=== PATIENT | male | born 1960 | race Caucasian/White ===

== ENCOUNTER 2021-01-18 23:58 | Inpatient (IN) | payer BC ==
[~2021-01-18] VITALS: Ht 182.9 cm; Wt 80.7 kg
[2021-01-19] VITALS (10 sets, daily range): BP systolic 106–155; BP diastolic 67–103
--- NOTE | 2021-01-19 00:19 | EKG ---
[address] [address] Test Date: 2021-01-19 Test Time: 00:06:04 Pat Name: ELMO TODD Department: Room: Gender: M Floor Layer Helper: : 1960 Requested By: JOSE ALEJANDRO FRANKLIN Order Number: [id number] Reading MD: Measurements Intervals Isabel Rate: 116 P: TX: QRS: 31 QRSD: 82 T: 51 QT: 326 QTc: 459 Interpretive Statements IRREGULAR RHYTHM, NO P-WAVE FOUND OTHERWISE NORMAL ECG RI6.02 No previous ECG available for comparison
[2021-01-19] MEDS ORDERED: IV NORMAL SALINE 100ML 100 ML ONE (00:26)
[2021-01-19] MEDS ORDERED: dilTIAZem 25 MG/5 ML VIAL IVP ONE (00:30)
[2021-01-19] MEDS ORDERED: IV RINGERS SOLUTION,LACTATED 1,000 ML IV ONE (00:30)
[2021-01-19] MEDS ORDERED: dilTIAZem VIAL 125 MG in IV NORMAL SALINE 100ML 100 ML IV ONE (00:30)
[2021-01-19 00:49] LABS: HEMATOCRIT 40.4 % (39.0-53.0); RED BLOOD COUNT 5.12 x10^6/uL (4.30-5.70); RED CELL DISTRIBUTION WIDTH 17.5 % (11.5-14.5); WHITE BLOOD COUNT 7.6 x10^3/uL (4.0-11.0)
[2021-01-19 00:51] LABS: CALCIUM 8.6 mg/dL (8.5-10.1); CREATININE 1.2 mg/dL (0.7-1.3); POTASSIUM 3.7 mmol/L (3.5-5.1)
--- NOTE | 2021-01-19 01:32 | PHYS DOC ---
Past History Past Medical History: No Pertinent History Past Surgical History: Other Additional Past Surgical Histo: EGD Alcohol Use: None Adult General Chief Complaint Chief Complaint: Palpitations HPI HPI Patient is a 60-year-old male, otherwise healthy with a past medical history of GERD who presents to the emergency department with a chief complaint of palpitations. States that over the last couple of weeks he has noticed this and noticed some exercise intolerance. States that over the last couple of days he has had episodes where he feels out of breath when walking, especially when walking upstairs which is unusual for him. States he is usually able to run and/or swim but is getting out of breath quicker than usual. States he never had anything like this happen to him before. States that yesterday he was swimming, and got out and felt lightheaded and had to hold onto the wall but did not pass out. Denies headache, changes in vision, chest pain, abdominal pain, nausea, vomiting, dysuria, hematuria, blood in the stool. Denies any alcohol, tobacco or drug use. Denies any recent travels, traumas, fevers, Covid/flu/cold symptoms. Denies any orthopnea, PND or edema. States he is making urine and stool normally for him with no blood in either. Review of Systems Review of Systems Review of systems otherwise normal except noted in HPI. Current Medications Current Medications Current Medications Medications (Trade) Dose Ordered Sig/Darrell Start Time Stop Time Status Last Admin Dose Admin Diltiazem HCl (Cardizem Iv Push) 20 mg 1X ONCE 01/19/21 00:30 01/19/21 00:31 DC 01/19/21 00:32 20 MG Diltiazem HCl (Cardizem) 125 mg STK-MED ONCE 01/19/21 00:27 01/19/21 00:27 DC Diltiazem HCl 125 mg/Sodium Chloride 125 ml @ 5 mls/hr 1X ONCE 01/19/21 00:30 01/20/21 01:29 01/19/21 00:33 5 MLS/HR Lactated Ringer's 1,000 ml @ 1,000 mls/hr 1X ONCE 01/19/21 00:30 01/19/21 01:29 01/19/21 00:32 1,000 MLS/HR Sodium Chloride 100 ml @ As Directed STK-MED ONCE 01/19/21 00:26 01/19/21 00:27 DC Allergies Allergies Allergies Coded Allergies Type Severity Reaction Last Updated Verified No Known Drug Allergies 01/19/21 No Physical Exam Physical Exam Constitutional: Well developed, well nourished, no acute distress, non-toxic appearance. [] HENT: Normocephalic, atraumatic, bilateral external ears normal, oropharynx moist, no oral exudates, nose normal. [] Eyes: PERRLA, EOMI, conjunctiva normal, no discharge. [] Neck: Normal range of motion, no tenderness, supple, no stridor. [] Cardiovascular:Heart rate regular rhythm, no murmur [] Lungs & Thorax: Bilateral breath sounds clear to auscultation [] Abdomen: Bowel sounds normal, soft, no tenderness, no masses, no pulsatile masses. [] Skin: Warm, dry, no erythema, no rash. [] Back: No tenderness, no CVA tenderness. [] Extremities: No tenderness, no cyanosis, no clubbing, ROM intact, no edema. [] Neurologic: Alert and oriented X 3, normal motor function, normal sensory function, no focal deficits noted. [] Psychologic: Affect normal, judgement normal, mood normal. [] Current Patient Data Vital Signs Vital Signs Date Time Temp Pulse Resp B/P (MAP) Pulse Ox O2 Delivery O2 Flow Rate FiO2 01/19/21 00:39 76 16 119/78 (92) 97 Room Air 01/19/21 00:14 97.6 Lab Results Laboratory Tests Test 01/19/21 00:16 White Blood Count 7.6 x10^3/uL (4.0-11.0) Red Blood Count 5.12 x10^6/uL (4.30-5.70) Hemoglobin 13.0 g/dL (13.0-17.5) Hematocrit 40.4 % (39.0-53.0) Mean Corpuscular Volume 79 fL (79-100) Mean Corpuscular Hemoglobin 25 pg (25-35) Mean Corpuscular Hemoglobin Concent 32 g/dL (31-37) Red Cell Distribution Width 17.5 % (11.5-14.5) H Platelet Count 163 x10^3/uL (140-400) D-Dimer (Kym) 0.40 mg/L (0.00-0.50) Sodium Level 146 mmol/L (136-145) H Potassium Level 3.7 mmol/L (3.5-5.1) Chloride Level 107 mmol/L (98-107) Carbon Dioxide Level 30 mmol/L (21-32) Anion Gap 9 (6-14) Blood Urea Nitrogen 19 mg/dL (8-26) Creatinine 1.2 mg/dL (0.7-1.3) Estimated GFR (Cockcroft-Gault) 62.0 Glucose Level 120 mg/dL (70-99) H Calcium Level 8.6 mg/dL (8.5-10.1) Magnesium Level 1.9 mg/dL (1.8-2.4) Troponin I Quantitative 0.055 ng/mL (0-0.055) EKG EKG [] Radiology/Procedures Radiology/Procedures [] Heart Score C/O Chest Pain: No Risk Factors: Risk Factors: DM, Current or recent (<one month) smoker, HTN, HLP, family histo ry of CAD, obesity. Risk Scores: Risk Factors: DM, Current or recent (<one month) smoker, HTN, HLP, family history of CAD, obesity. Course & Med Decision Making Course & Med Decision Making Patient is a 60-year-old male who presents with a chief complaint of palpitations, lightheadedness and shortness of breath intermittently over the last couple of weeks worsening yesterday Vital signs notable for tachycardia. Physical exam noted above. EKG noted a krystyna with no STEMI but A. fib RVR. Troponin within normal limits. D-dimer within normal limits. Chest x-ray not concerning. Started on a diltiazem bolus and drip given A. fib with RVR and heart rate in the 120s and feelings of shortness of breath. Patient on no other medications including blood thinners. Discussed all findings with patient and recommended admission to the hospital for continued evaluation and treatment of his A. fib with RVR. Patient grateful, verbalized understanding and agreed with plan of admission. [] Critical care 30 minutes. Dragon Disclaimer Dragon Disclaimer This electronic medical record was generated, in whole or in part, using a voice recognition dictation system. Departure Departure: Impression: Primary Impression: Atrial fibrillation with RVR Additional Impressions: Shortness of breath Lightheadedness Disposition: ADMITTED INPATIENT Admitting Physician: Niecy Larose Condition: GOOD Referrals: NIECY DELGADO MD (PCP) Problem Qualifiers JOSE ALEJANDRO FRANKLIN MD January 19, 2021 01:31
--- NOTE | 2021-01-19 01:49 | RAD ---
EXAM: CHEST ONE VIEW. HISTORY: Palpitations. COMPARISON: None. FINDINGS: A frontal view of the chest is obtained. There are no confluent infiltrates. There is no pneumothorax or pleural effusion. The heart is not en larged. IMPRESSION: 1. No confluent infiltrates. Electronically signed by: Amy Cordova MD (01/19/2021 1:46 AM) [facility]
--- NOTE | 2021-01-19 02:09 | NUR ---
The patient, ELMO TODD, 60 y/o, M admitted by NIECY CORONADO MD, was given written information regarding hospital policies, unit procedures and contact persons. Valuables were checked and logged. Call light in place.
[2021-01-19] MEDS ORDERED: CHLO4TAB PO (03:49)
--- NOTE | 2021-01-19 06:37 | NUR ---
Throughout the night whenever the pt would stand up pt's heart rate would be between 120's-140's.
[2021-01-19] MEDS ORDERED: APIXABAN 5 MG TABLET. PO SCH (10:00)
[2021-01-19] MEDS ORDERED: METOPROLOL TART IMMED RELEASE 50 MG TABLET PO SCH (10:00)
--- NOTE | 2021-01-19 11:43 | HP ---
ADMIT DATE: 01/19/2021 ATTENDING PHYSICIAN: Dr. Larose. CHIEF COMPLAINT: Palpitation. HISTORY OF PRESENT ILLNESS: The patient is a 60-year-old gentleman who has been in fairly good health. He monitors his blood pressure. He rides a bike and he swims on a regular basis. He was at a local [facility] pharmacy. He had a pulse oximeter and blood pressure monitoring kit. Pulse is elevated. He had it checked several times. In addition, 2 days ago he was getting out of the pool, he felt dizzy, he was a little bit nauseated that has subsided, but he had a near syncopal episode. In the ED, he had a fairly extensive workup. Chest x-ray was clear. He had atrial fibrillation with rapid ventricular rate. Rate was in the 150s. Cardizem drip was started, it brought the heart rate down to the 100s. He was admitted then for further treatment and evaluation. He denied any alcohol use, recent trauma, previous history of heart disease, family history of heart disease. There is no diabetes. He is not on any medication. He states that he has not been diagnosed with hypertension, although he could not be sure. PAST MEDICAL HISTORY: Unremarkable for any cardiac issues. No previous history of coronary artery disease, palpitations. He has not had an echocardiogram. CURRENT MEDICATIONS: None. No prescription meds. ALLERGIES: He has no known drug allergies. FAMILY HISTORY: Parents are still alive at age 85 and 87 respectively. They are otherwise healthy. SOCIAL HISTORY: He is retired from working in [employer]. He says he has a pension. He has a bike and he gets around the town without any problems. REVIEW OF SYSTEMS: Significant for the near syncopal episode, the palpitations. He denied any chest pain. No dizziness or syncope. He has had some gastroesophageal reflux disease. All other systems reviewed and turned to be negative. He is a nondrinker, nonsmoker. PHYSICAL EXAMINATION: GENERAL: When I saw him, this is a pleasant middle-aged gentleman. VITAL SIGNS: Initial vital signs showed a blood pressure of 143/96, his pulse ranged between 100-110, irregularly irregular. Oxygen saturation 93% on room air. He was afebrile. HEENT: Head is without trauma. Pupils are reactive. Sclerae is nonicteric. Oropharynx is clear. NECK: Supple, no bruits identified. LUNGS: Good breath sounds without any wheezing, rales or rhonchi. CARDIOVASCULAR: Showed a tachycardic rhythm, irregularly irregular rate approximately 105 per minute. Peripheral pulses are palpable and full. There are no murmurs. ABDOMEN: Soft, scaphoid, nontender. EXTREMITIES: Show no cyanosis or edema. SKIN: Warm and dry. NEUROLOGIC: Function focally intact. Paper Stacker were symmetrical. Speech is fluent. PERTINENT LABORATORY and X-RAY STUDIES: Chest x-ray on admission showed no acute cardiopulmonary process. There is no cardiomegaly. Hemoglobin on admission was within normal range. His electrolytes were within normal range. The first set of cardiac enzyme was 0.06. ASSESSMENT: 1. This 60-year-old gentleman has new onset atrial fibrillation with rapid ventricular rate. Most likely, the underlying etiology is hypertension. 2. Essential hypertension. 3. History of gastroesophageal reflux disease. PLAN: 1. Admit to the inpatient unit ICU monitoring. 2. Cardizem drip has been started to slow his heart rate down. 3. I will initiate beta blockade with metoprolol today. 4. Anticoagulation with initiation of Eliquis. 5. Formal Cardiology consult. 6. He will need an echocardiogram, which will be set up as an outpatient. TREVOR DR: Guillermo TID: [id number] CC: NIECY DELGADO
--- NOTE | 2021-01-19 12:28 | NUR ---
Patient discharged per Dr. Larose and Dr. Willingham. Patient stable upon discharge and walked to door with all belongings. Patient will follow up with Dr. Willingham outpatient. Patient departed with family and stable upon departure.
--- NOTE | 2021-01-19 12:47 | PDOC2 ---
CONSULT DOS: DATE: 01/19/21 TIME: 12:47 Reason for Consult: Atrial fibrillation Referring Physician: Dr. Larose Chief Complaint Palpitations Source: Chart review, Patient Problem List Problems Medical Problems: (1) Atrial fibrillation with RVR Status: Acute (2) Lightheadedness Status: Acute (3) Shortness of breath Status: Acute History of Present Illness 60-year-old male without any previous cardiac history presented with palpitations and fast heart rate noted on blood pressure monitor was found to be in atrial fibrillation with rapid ventricular response. He stated that he had been feeling more fatigued and dyspneic on exertion recently and actually had a near syncopal episode after he finished swimming yesterday. He had few episodes of retrosternal chest pain that he attributed to his previously known history of peptic ulcer disease. He denied any orthopnea/PND or jeffrey syncope. He drinks 3 to 5 glasses of Coke every day but denied any alcohol abuse or illicit drug use. Past Medical History Gastroesophageal reflux disease Past Surgical History: No pertinent history Family History No family history of premature coronary artery disease Social History Patient is very active, exercises on a regular basis and denied any smoking, alcohol or drug use. Current Medications Current Medications Diltiazem HCl (Cardizem Iv Push) 20 mg 1X ONCE IVP Last administered on 01/19/21at 00:32; Start 01/19/21 at 00:30; Stop 01/19/21 at 00:31; Status DC Diltiazem HCl 125 mg/Sodium Chloride 125 ml @ 5 mls/hr 1X ONCE IV Last administered on 01/19/21at 00:33; Start 01/19/21 at 00:30; Stop 01/19/21 at 12:35; Status DC Lactated Ringer's 1,000 ml @ 1,000 mls/hr 1X ONCE IV Last administered on 01/19/21at 00:32; Start 01/19/21 at 00:30; Stop 01/19/21 at 01:29; Status DC Sodium Chloride 100 ml @ As Directed STK-MED ONCE .ROUTE ; Start 01/19/21 at 00:26; Stop 01/19/21 at 00:27; Status DC Diltiazem HCl (Cardizem) 125 mg STK-MED ONCE IV ; Start 01/19/21 at 00:27; Stop 01/19/21 at 00:27; Status DC Metoprolol Tartrate (Lopressor) 50 mg BID PO Last administered on 01/19/21at 10:39; Start 01/19/21 at 10:00; Stop 01/19/21 at 12:35; Status DC Apixaban (Eliquis) 5 mg BID PO Last administered on 01/19/21at 10:39; Start 01/19/21 at 10:00; Stop 01/19/21 at 12:35; Status DC Active Scripts Active Reported Chlortabs (Chlorpheniramine Maleate) 4 Mg Tablet 4 Mg PO DAILY Allergies: Coded Allergies: No Known Drug Allergies (Unverified , 01/19/21) General: YES: Fatigue PSYCHOLOGICAL ROS: No: Hallucinations Eyes: No: Loss of vision HEENT: No: Epistaxis Respiratory: YES: Shortness of breath; No: Hemoptysis Cardiovascular: yes: Chest Pain, Palpitations Genitourinary: No: Henaturia Neurological: No: Seizures Skin: No: Rash General: Alert, Oriented X3, No acute distress HEENT: Atraumatic Lungs: Clear to auscultation Heart: Other (Heart rate irregularly irregular) Abdomen: Soft Extremities: No edema Neuro: Normal speech Psych/Mental Status: Mood NL VITALS Vital Signs Date Time Temp Pulse Resp B/P (MAP) Pulse Ox O2 Delivery O2 Flow Rate FiO2 01/19/21 11:00 85 16 137/67 (90) 97 Room Air 01/19/21 08:00 97.9 Labs Laboratory Tests Test 01/19/21 00:16 01/19/21 09:25 White Blood Count 7.6 x10^3/uL (4.0-11.0) Red Blood Count 5.12 x10^6/uL (4.30-5.70) Hemoglobin 13.0 g/dL (13.0-17.5) Hematocrit 40.4 % (39.0-53.0) Mean Corpuscular Volume 79 fL (79-100) Mean Corpuscular Hemoglobin 25 pg (25-35) Mean Corpuscular Hemoglobin Concent 32 g/dL (31-37) Red Cell Distribution Width 17.5 % (11.5-14.5) Platelet Count 163 x10^3/uL (140-400) D-Dimer (Kym) 0.40 mg/L (0.00-0.50) Sodium Level 146 mmol/L (136-145) Potassium Level 3.7 mmol/L (3.5-5.1) Chloride Level 107 mmol/L (98-107) Carbon Dioxide Level 30 mmol/L (21-32) Anion Gap 9 (6-14) Blood Urea Nitrogen 19 mg/dL (8-26) Creatinine 1.2 mg/dL (0.7-1.3) Estimated GFR (Cockcroft-Gault) 62.0 Glucose Level 120 mg/dL (70-99) Calcium Level 8.6 mg/dL (8.5-10.1) Magnesium Level 1.9 mg/dL (1.8-2.4) Troponin I Quantitative 0.055 ng/mL (0-0.055) 0.026 ng/mL (0-0.055) PX-Buo-O-Type Natriuretic Peptide 1550 pg/mL (0-124) Assessment/Plan 1. Atrial fibrillation with rapid ventricular response, newly diagnosed, uncertain duration. Heart rate better controlled with intravenous Cardizem infusion. We will stop this and start metoprolol for rate control and Eliquis for stroke prophylaxis. Plan for 2D echocardiogram as an outpatient. We will consider outpatient cardioversion after 3 to 4 weeks of anticoagulation. 2. Chest pain: EKG did not show any acute ischemic changes. Troponin level borderline at 0.05. Plan for outpatient ischemic evaluation. 3. Near syncope: Most probably vasovagal but cannot rule out sick sinus syndrome in lieu of his atrial fibrillation presentation. Plan for outpatient event monitor. Okay for discharge from cardiac standpoint. Thank you for your consultation. SHIKHA CUNHA MD January 19, 2021 12:47
--- NOTE | 2021-01-19 20:20 | DS ---
DATE OF DISCHARGE: 01/19/2021 FINAL DISCHARGE DIAGNOSES: 1. Atrial fibrillation with rapid ventricular rate, controlled. 2. Essential hypertension. 3. History of gastroesophageal reflux disease. HISTORY OF PRESENT ILLNESS AND HOSPITAL COURSE: The patient is a 60-year-old gentleman, otherwise healthy. No meds, nonsmoker, nondrinker. He had palpitations, arrhythmia. He had a heart rate of 150 per minute, irregularly irregular. He was admitted with new onset atrial fibrillation with rapid ventricular rate. PHYSICAL EXAMINATION: Please see the dictated note. PERTINENT LABORATORY STUDIES: His admission hemoglobin was 13.0 g/dL. Electrolytes within normal range. Potassium 3.7 mEq two sets of cardiac enzymes are negative for coronary ischemia. BNP was 1550. Chest x-ray showed no acute infiltrates. EKG showed atrial fibrillation with rapid ventricular rate. COURSE IN HOSPITAL: The patient was started on Cardizem drip which slowed the ventricular rate down; it remained irregular. He was admitted to the ICU. We did start anticoagulation, on the next day I stopped his Cardizem drip and put him on metoprolol 50 mg b.i.d. Formal Cardiology consultation was obtained. Please refer to Dr. Willingham's note; he ordered a followup TSH; in addition, he will do further evaluation including echocardiogram and event monitor as an outpatient. Therefore, on the afternoon of 01/19/2021, the patient was stable; blood pressure, vital signs were stable, ventricular rate controlled and slowed down into 70s per minute. Therefore, I wrote scripts, were Eliquis 5 mg p.o. b.i.d. along with Toprol-XL 100 mg p.o. daily. There were no restrictions on diet or activities. He will follow up with Dr. Willingham's office. They will call him next week to schedule outpatient echocardiogram and event monitor. He was discharged in stable condition with explicit drug and followup care. NEO DR: Guillermo TID: [id number] CC: NIEYC DELGADO
== END 2021-01-19 12:35 | disposition home or self-care (01) | DRG 310 ==
LOC: ER 23:58 → ICU 01-19 01:31
PROVIDERS: ADMIT Hospitalist; ATTEND Hospitalist
DX: I48.20 Chronic atrial fibrillation, unspecified (principal); I10 Essential (primary) hypertension; K21.9 Gastro-esophageal reflux disease without esophagitis; Z79.899 Other long term (current) drug therapy; Z87.11 Personal history of peptic ulcer disease; I49.5 Sick sinus syndrome
CPT/HCPCS: 36415; 71045; 80048; 83735; 83880; 84443; 84484; 85027; 85379; 93005; 96365; 96375; 99291; J3490; J7120

== ENCOUNTER 2021-02-12 15:27 | Emergency (ER) | payer BC ==
[~2021-02-12] VITALS: Ht 182.9 cm; Wt 78.9 kg
[~2021-02-12 15:27] MED LIST: CHLO4TAB PO
[2021-02-12] MEDS ORDERED: dilTIAZem 25 MG/5 ML VIAL IVP ONE (16:00)
[2021-02-12] MEDS ORDERED: IV NORMAL SALINE 1,000ML 1,000 ML IV ONE (16:00)
--- NOTE | 2021-02-12 16:10 | PHYS DOC ---
Past History Past Medical History: No Pertinent History Past Surgical History: Other Additional Past Surgical Histo: EGD Alcohol Use: None General Adult EDM: Chief Complaint: OTHER COMPLAINTS HPI: HPI: 60-year-old male past medical history significant for atrial fibrillation, tennis elbow and hypertension presents to the ED sent from urgent care clinic with concern for left upper extremity paresthesias. Patient reports he was in the ED 1 month ago for his A. fib and has cut down the Eliquis in half because it caused him "fatigue," and has had difficulties seeing his pcp. Patient r gelacio last night around 11:30 PM while he was sitting on the floor "killing ants," he had tingling in his forearm, hand and fingers. Took his blood pressure and machine read 139/116. Patient reports tingling is now mild and only felt in his second and third digits of his left, nondominant hand. Believes he was sent here to be evaluated for a stroke. Pt states "please tell me I'm not paranoid that the aliens aren't coming to get me." Patient denies any blunt head or neck trauma. Review of Systems: Review of Systems: Constitutional: Denies fever or chills Eyes: Denies change in visual acuity or red eye HENT: Denies nasal congestion or sore throat Respiratory: Denies cough or shortness of breath Cardiovascular: Denies chest pain or syncope GI: Denies nausea, vomiting, or diarrhea : Denies saddle anesthesia, inability to void Musculoskeletal: Denies back pain or joint deformity Integument: Denies rash or diaphoresis Neurologic: Denies headache, neck pain, Psychiatric: Denies depression or anxiety Allergies: Allergies: Allergies Coded Allergies Type Severity Reaction Last Updated Verified No Known Drug Allergies 01/19/21 No Physical Exam: PE: Constitutional: Well developed, well nourished, no acute distress, non-toxic appearance. HENT: Normocephalic, atraumatic, Eyes: PERRLA, EOMI, conjunctiva normal, no discharge. Neck: Normal range of motion, supple, Cardiovascular: S1/2 present, regular rapid rhythm Lungs & Thorax: Speaking in full sentences, bilateral equal chest rise, no tachypnea or increased work of breathing Skin: Warm, dry, no erythema, no rash. [] Extremities: No tenderness, no cyanosis, no lower extremity edema Neurologic: NIHSS 0, CN2-12 intact, no midline neck pain, GCS 15, normal/equal UE muscle strength bilaterally, normal median/ulnar/radial sensation bilaterally, cap refill less than 1 second with normal skin turgor, no sxs w/phalens test Psychologic: Affect normal, judgement normal, mood-makes statements about being paranoid and aliens then laughs (suspect his sense of humor), is reading on his electronic device the majority of my time spent with him EKG: EKG: A. fib with RVR 123, no axis deviation, QTC 464, no T wave inversion, no ST elevation or ST depression, no active chest pain Radiology/Procedures: Radiology/Procedures: IMAGING REPORT Signed PATIENT: ELMO TODD ACCOUNT: [id number] : 1960 LOCATION: ER AGE: 60 SEX: M EXAM STATUS: REG ER ORD. PHYSICIAN: NEELA ARMENDARIZ DO REASON: lue parethesias PROCEDURE: PORTABLE CHEST 1V EXAM: Chest, single view. HISTORY: Paresthesia. COMPARISON: 01/19/2021. FINDINGS: A frontal view of the chest is obtained. There is no infiltrate, pleural effusion or pneumothorax. The heart is normal in size. IMPRESSION: No acute pulmonary finding. Electronically signed by: Elizabeth Magana MD (02/12/2021 4:30 PM) [id number] DICTATED AND SIGNED BY: ELIZABETH MAGANA MD DATE: 02/12/21 1630 CC: NIECY DELGADO MD; NEELA ARMENDARIZ DO ~MTH0 0 IMAGING REPORT Signed PATIENT: ELMO TODD ACCOUNT: [id number] : 1960 LOCATION: ER AGE: 60 SEX: M EXAM STATUS: REG ER ORD. PHYSICIAN: NEELA ARMENDARIZ DO REASON: lue paresthesuas PROCEDURE: CT HEAD WO CONTRAST EXAM: Head CT without contrast. HISTORY: Left upper extremity paresthesia. TECHNIQUE: Computed tomographic images of the head were obtained without contrast. *One or more of the following individualized dose reduction techniques were utilized for this examination: 1. Automated exposure control. 2. Adjustment of the mA and/or kV according to patient size. 3. Use of iterative reconstruction technique. COMPARISON: None. FINDINGS: There is no acute or subacute extra-axial or intraparenchymal hemorrhage. There is no mass effect or midline shift. There is no hydrocephalus. The fatima-white matter differentiation pattern is intact. The visualized portions of the orbits, paranasal sinuses and mastoid air cells are unremarkable. No suspicious calvarial lesion is seen. IMPRESSION: No acute intracranial findings. Electronically signed by: Elizabeth Magana MD (02/12/2021 4:31 PM) [id number] DICTATED AND SIGNED BY: ELIZABETH MAGANA MD DATE: 02/12/21 1630 CC: NIECY DELGADO MD; [facility] DO ~MTH0 0 Heart Score: C/O Chest Pain: No Risk Factors: Risk Factors: DM, Current or recent (<one month) smoker, HTN, HLP, family history of CAD, obesity. Risk Scores: Score 0 - 3: 2.5% MACE over next 6 weeks - Discharge Home Score 4 - 6: 20.3% MACE over next 6 weeks - Admit for Clinical Observation Score 7 - 10: 72.7% MACE over next 6 weeks - Early Invasive Strategies Course & Med Decision Making: Course & Med Decision Making Pertinent Labs and Imaging studies reviewed. (See chart for details) Concern for LUE paresthesias in the setting of a normal neuro exam. Symptoms not consistent with stroke physiology. A. fib with RVR controlled with 1 dose of Cardizem. Patient educated on compliance with medications -but noncompliance would lead to increased risk of stroke and A. fib with RVR. Will discharge home with strict ED return precautions were given for strokelike symptoms, blurred vision, speech changes, muscle or sensory deficits, syncope, palpitations, chest pain or dyspnea. Encouraged urgent outpatient follow up with pcp, may benefit from cardiology and neurology referrals. Life-threatening processes were considered but are low suspicion at this time, given history, physical exam and ED workup. Pt was educated on all prescription medications and adverse effects. All patient's questions were answered and pt was stable at time of discharge. Life/limb-threatening differential includes but is not limited to, trauma (fracture, dislocation, laceration, compartment syndrome, tendon or ligament injury), neurovascular injury or neuro defici tcva/tia, infection (osteomyelitis, abscess, cellulitis, septic arthritis, necrotizing fasciitis), deep vein thrombosis, renal/cardiac/liver disease, medication adverse effect, lymphedema/anasarca, vascular insufficiency or malignancy, I spoken with the patient and her caregivers. I explained the patient's condition, diagnoses and treatment plan based on the information available to me at this time. I have answered the patient and her caregiver's questions and addressed any concerns. The patient and her caregivers have a good understanding of patient's diagnosis, condition and treatment plan as can be expected at this point. Vital signs have been stable. Patient's condition is stable and appropriate for discharge from the emergency department. Patient will pursue further outpatient evaluation with primary care physician or other designated or consulting physician as outlined in the discharge instructions. The patient and/or caregivers are agreeable to this plan of care and follow-up instructions have been explained in detail. The patient and/or caregivers have received these instructions in written form and have expressed an understanding of the discharge instructions. The patient and/or caregivers are aware that any significant change of condition or worsening of symptoms should prompt immediate return to this or the closest emergency department or call to [facility] Disclaimer: [employer] Disclaimer: This electronic medical record was generated, in whole or in part, using a voice recognition dictation system. Departure Departure: Impression: Primary Impression: Paresthesia of left upper extremity Additional Impressions: Noncompliance with medication regimen Atrial fibrillation with RVR Disposition: HOME / SELF CARE / HOMELESS Condition: STABLE Referrals: NIECY DELGADO MD (PCP) followup in 1-3 days for re-evaluation, Patient Instructions: Atrial Fibrillation, Paresthesia Additional Instructions: EMERGENCY DEPARTMENT GENERAL DISCHARGE INSTRUCTIONS Thank you for coming to [facility] (ED) today and trusting us with you care. We trust that you had a positivie experience in our Emergency Department. If you wish to speak to the department management, you may call the director at [phone]. YOUR FOLLOW UP INSTRUCTIONS ARE FOLLOWS: 1. Do you have a private Doctor? If you do not have a private doctor, please ask for a resource list of physicians or clinics that may be able to assist you with follow up care. 2. The Emergency Physician has interpreted your x-rays. The X-Ray specialist will also review them. If there is a change in the findings, you will be notified in 48 hours when at all possible. 3. A lab test or culture has been done, your results will be reviewed and you will be notified if you need a change in treatment. ADDITIONAL INSTRUCTIONS AND INFORMATION: 1. Your care today has been supervised by a physician who is specially trained in emergency care. Many problems require more than one evaluation for a complete diagnosis and treatment. We recommend that you schedule your follow up appointment as recommended to ensure complete treatment of you illness or injury. If you are unable to obtain follow up care and continue to have a problem, or if your condition worsens, we recommend that you return to the ED. 2. We are not able to safely determine your condition over the phone nor are we able to give sound medical advice over the phone. For these safety reasons, if you call for medical advice we will ask you to come to the ED for further evaluation. 3. If you have any questions regarding these discharge instructions please call the ED at [phone]. SAFETY INFORMATION: In the interest of safety, wellness, and injury prevention; we encourage you to wear your sealbelt, if you smoke; quite smoking, and we encourage family to use a protective helmet for bicycling and other sporting events that present an increased risk for head injury. IF YOUR SYMPTOMS WORSEN OR NEW SYMPTOMS DEVELOP, OR YOU HAVE CONCERNS ABOUT YOUR CONDITION; OR IF YOUR CONDITION WORSENS WHILE YOU ARE WAITING FOR YOUR FOLLOW UP APPOINTMENT; EITHER CONTACT YOUR PRIMARY CARE DOCTOR, THE PHYSICIAN WHOSE NAME AND NUMBER YOU WERE GIVEN, OR RETURN TO THE ED IMMEDIATELY. NEELA AMARO DO Feb 12, 2021 16:10
--- NOTE | 2021-02-12 16:33 | RAD ---
EXAM: Head CT without contrast. HISTORY: Left upper extremity paresthesia. TECHNIQUE: Computed tomographic images of the head were obtained without contrast. *One or more of the following individualized dose reduction techniques were utilized for this examina tion: 1. Automated exposure control. 2. Adjustment of the mA and/or kV according to patient size. 3. Use of iterative reconstruction technique. COMPARISON: None. FINDINGS: There is no acute or subacute extra-axial or intraparenchymal hemorrhage. There is no mass effect or midline shift. There is no hydrocephalus. The fatima-white matter differentiation pattern is intact. The visualized portions of the orbits, paranasal sinuses and mastoid air cells are unremarkable. No s uspicious calvarial lesion is seen. IMPRESSION: No acute intracranial findings. Electronically signed by: Elizabeth Waite MD (02/12/2021 4:31 PM) [id number]
--- NOTE | 2021-02-12 16:33 | EKG ---
[address] [address] Test Date: 2021-02-12 Test Time: 16:07:36 Pat Name: ELMO TODD Department: Room: Gender: M Crutch Maker: TAMI : 1960 Requested By: NEELA ARMENDARIZ Order Number: [id number] Reading MD: Measurements Intervals [place] Rate: 123 P: TN: QRS: 15 QRSD: 80 T: 31 QT: 320 QTc: 464 Interpretive Statements IRREGULAR RHYTHM, NO P-WAVE FOUND OTHERWISE NORMAL ECG RI6.02 No previous ECG available for comparison
--- NOTE | 2021-02-12 16:33 | RAD ---
EXAM: Chest, single view. HISTORY: Paresthesia. COMPARISON: 01/19/2021. FINDINGS: A frontal view of the chest is obtained. There is no infiltrate, pleural effusion or pneumo thorax. The heart is normal in size. IMPRESSION: No acute pulmonary finding. Electronically signed by: Elizabeth Waite MD (02/12/2021 4:30 PM) [id number]
[2021-02-12 16:56] LABS: BASO # 0.1 x10^3/uL (0.0-0.2); BASO % 1 % (0-3); EOS # 0.3 x10^3/uL (0.0-0.7); EOS % 6 % (0-3); HEMATOCRIT 37.4 % (39.0-53.0); HEMOGLOBIN 11.8 g/dL (13.0-17.5); LYMPH % 19 % (24-48); MEAN CORPUSCULAR HEMOGLOBIN 25 pg (25-35); MEAN CORPUSCULAR HGB CONC 32 g/dL (31-37); MEAN CORPUSCULAR VOLUME 79 fL (79-100); MONO # 0.4 x10^3/uL (0.0-1.1); MONO % 7 % (0-9); NEUT # 3.7 x10^3uL (1.8-7.7); NEUT % 67 % (31-73); PLATELET COUNT 133 x10^3/uL (140-400); RED BLOOD COUNT 4.75 x10^6/uL (4.30-5.70); RED CELL DISTRIBUTION WIDTH 18.3 % (11.5-14.5); WHITE BLOOD COUNT 5.6 x10^3/uL (4.0-11.0)
[2021-02-12 17:06] LABS: CALCIUM 8.6 mg/dL (8.5-10.1); CREATININE 1.1 mg/dL (0.7-1.3); GFR 68.5; POTASSIUM 4.6 mmol/L (3.5-5.1)
[2021-02-12 17:11] VITALS: BP 124/85
[2021-02-12 17:13] LABS: ALBUMIN 3.5 g/dL (3.4-5.0); ALBUMIN/GLOBULIN RATIO 1.1 (1.0-1.7); MAGNESIUM 2.3 mg/dL (1.8-2.4); TOTAL BILIRUBIN 0.5 mg/dL (0.2-1.0); TOTAL PROTEIN 6.7 g/dL (6.4-8.2)
== END 2021-02-12 18:17 | disposition home or self-care (01) ==
LOC: ER 15:27
DX: I48.20 Chronic atrial fibrillation, unspecified (principal); R20.2 Paresthesia of skin; I10 Essential (primary) hypertension; Z91.14 Patient's other noncompliance with medication regimen
CPT/HCPCS: 36415; 70450; 71045; 80053; 82550; 83735; 84443; 84484; 85025; 93005; 96361; 96374; 99285; J3490; J7030

== ENCOUNTER → 2021-02-25 | Outpatient (CLI) | payer BC ==
[2021-02-12 17:11] VITALS: BP 124/85
--- NOTE | 2021-02-25 15:15 | CARD ---
MR#: [id number] Date of Study: 02/25/2021 Ordering Physician: SHIKHA CUNHA, Referring Physician: SHIKHA CUNHA, Tech: Maryam Hamilton [facility] APPROVED REPORT EXAM: Two-dimensional and M-mode echocardiogram with Doppler and color Doppler. Other Information Quality : AverageHR: 89bpm INDICATION Atrial Fibrillation RISK FACTORS Hypertension 2D DIMENSIONS RVDd2.9 (2.9-3.5cm)Left Atrium(2D)4.1 (1.6-4.0cm) IVSd0.9 (0.7-1.1cm)Aortic Root(2D)3.4 (2.0-3.7cm) LVDd5.0 (3.9-5.9cm)LVOT Diameter1.9 (1.8-2.4cm) PWd0.9 (0.7-1.1cm)LVDs3.4 (2.5-4.0cm) FS (%) 32.8 %SV73.5 ml LVEF(%)41.0 (>50%) Aortic Valve AoV Peak Duane.125.6cm/sAoV VTI28.0cm AO Peak GR.6.3mmHgLVOT Peak Duane.100.7cm/s LVOT VTI 20.27cmAO Mean GR.4mmHg PIERRE (VMAX)2.89gl3RQP (VTI)2.05cm2 Mitral Valve MV E Hxlfjifl453.6cm/sMV DECEL ZWYK600gz MV A Rewuftuv09.4cm/sE/A Ratio3.5 Pulmonary Valve PV Peak Sxsknwgo83.5cm/sPV Peak Grad.1mmHg Tricuspid Valve TR P. Khbavyrn226iu/sRAP CBDJQPEW1uoDb TR Peak Gr.66jaKaFAAC29pvJb LEFT VENTRICLE The left ventricle is normal size. There is normal left ventricular wall thickness. The systolic func tion is moderately impaired. The Ejection Fraction is 40%. Difficult to estimate due to afib. Wall mo tion consistent with conduction abnormality. Otherwise, there is mild to moderate global hypokinesis. Tissue Doppler imaging reveals moderate left ventricular diastolic dysfunction. RIGHT VENTRICLE The right ventricle is borderline dilated. There is normal right ventricular wall thickness. The righ t ventricular systolic function is normal. ATRIA The left atrium size is normal. The right atrium size is normal. The interatrial septum is intact wit h no evidence for an atrial septal defect or patent foramen ovale as noted on 2-D or Doppler imaging. AORTIC VALVE The aortic valve is normal in structure and function. Doppler and Color Flow revealed trace aortic re gurgitation. There is no significant aortic valvular stenosis. Calculated aortic valve area is 2.5 cm 2 with maximum pressure gradient of 7 mmHg and mean pressure gradient of 4 mmHg. MITRAL VALVE The mitral valve is normal in structure and function. There is no evidence of mitral valve prolapse. There is no mitral valve stenosis. Doppler and Color-flow revealed trace mitral regurgitation. TRICUSPID VALVE The tricuspid valve is normal in structure and function. Doppler and Color Flow revealed trace tricus pid regurgitation with an estimated PAP of 31 mmHg. There is no tricuspid valve stenosis. PULMONIC VALVE The pulmonic valve is not well visualized. Doppler and Color Flow revealed trace to mild pulmonic massimo vular regurgitation. There is no pulmonic valvular stenosis. GREAT VESSELS The aortic root is normal in size. The IVC is normal in size and collapses >50% with inspiration. PERICARDIAL EFFUSION There is no evidence of significant pericardial effusion. Critical Notification Critical Value: No <Conclusion> The systolic function is moderately impaired. The Ejection Fraction is 40%. Difficult to estimate due to afib. Wall motion consistent with conduction abnormality. Otherwise, there is mild to moderate global hypok inesis. Signed by : Jerzy Vuong, Electronically Approved : 02/25/2021 15:15:27
== END ==
LOC: ECHO 10:28
PROVIDERS: ATTEND Internal Medicine Cardiovascular Disease
DX: I37.1 Nonrheumatic pulmonary valve insufficiency (principal); I48.91 Unspecified atrial fibrillation
CPT/HCPCS: 93306

== ENCOUNTER → 2021-03-19 | Outpatient (CLI) | payer BC ==
[~2021-03-19] MED LIST changes: +REGADENOSON 0.4 MG/5 ML DISP.SYRIN. IV ONE
--- NOTE | 2021-03-19 15:11 | RAD ---
MR#: [id number] Date of Study: 03/19/2021 Ordering Physician: SHIKHA WILLINGHAM Referring Physician: DAX ST Tech: RT Valerie (R) (N) APPROVED REPORT Test Type: Pharmacological Stress Nurse/Tech: Damian Test Indications: A-Fib Cardiac History: See [employer] EMR NKDA Resting ECG: SR Resting Heart Rate: 49 bpm Resting Blood Pressure: 108/62mmHg Pretest Chest Pain: None Pharm. Details Pharmacologic stress testing was performed using 0.4mg per 5ml of regadenoson given intravenously ove r 7-10 seconds. Stress Symptoms DYSPNEA POST EXERCISE Reason for Termination: Infusion complete Max HR: 83 bpm Max Blood Pressure: 126/63mmHg Blood Pressure response to exercise: Normal blood pressure response during stress. Heart Rate response to exercise: NORMAL Chest Pain: No. Arrhythmia: No. ST Change: No. INTERPRETATION Stress EKG Conclusion: Baseline EKG showed sinus rhythm. No ischemic changes at peak stress. No arr hythmias. Imaging Protocol IMAGE PROTOCOL: Rest Tc-99m/stress Tc-99m 1 day Rest: Stress: Viability: Radiopharm.Tc99m DfejmflbuWo07z Sestamibi Xhnc27qMz 33mCi Duration 15min. 15min. Img Date 03/19/2021 03/19/2021 Inj-Img Satp52ddz. 60min. Rest Admin Site:IV - Right AntecubitalAdministrator: RT Valerie (R)(N) Stress Admin Site: IV - Right AntecubitalAdministrator: RT Valerie (R)(N) STRESS DATA End Diast. Vol.159.0mlAv. Heart Rate65.0bpm End Syst. Vol.62.0mlCO Index BSA0.0L/min Myocardial Psfb512.0gEject. Uudwzelr87.0% Stress Rates Pk. Fill Rate2.44EDV/secLVtime Pk. Fill 151.22msec Pk. Empty Rate2.95ESV/secLVtime Pk. Ttnly655.05msec 09/09 Pk. Fill1.72EDV/sec Stress Scores Regional WT0.00Summed WT9.00 Regional WM0.00Summed WM4.00 Study quality was good. Left Ventricular size was Normal at Rest and Stress. Lung uptake was . Left Ventricular ejection fraction is 57%. The rest and stress images show normal perfusion, normal contraction and thickening. LV Perf. Quant 17 Seg. SSS4.00 17 Seg. SRS0.00 17 Seg. SDS4.00 Stress Defect Extent (% LAD)6.90Rest Defect Extent (% LAD)0.00Rev. Defect Extent (% LAD)6.90 Stress Defect Extent (% LCX) 15.00Rest Defect Extent (% LCX)0.00Rev. Defect Extent (% LCX)15.00 Stress Defect Extent (% RCA)1.10Rest Defect Extent (% RCA)0.00Rev. Defect Extent (% RCA)1.10 Stress Defect Extent (% ELISA)6.50Rest Defect Extent (% ELISA)0.00Rev. Defect Extent (% ELISA)6.50 Conclusion 1. Regadenoson cardioisotope stress test did not show any evidence of ischemia or infarct. 2. Normal left ventricular systolic function with ejection fraction calculated at 57%. 3. Low risk for cardiac events. Signed by : Shikha Willingham, Electronically Approved : 03/19/2021 15:10:40
== END ==
LOC: NM 08:41
PROVIDERS: ATTEND Internal Medicine Cardiovascular Disease
DX: I48.91 Unspecified atrial fibrillation (principal)
CPT/HCPCS: 78452; 93017; A9500; J2785

== ENCOUNTER → 2021-10-09 | Outpatient (CLI) | payer BC ==
[~2021-10-09] MED LIST changes: -REGADENOSON 0.4 MG/5 ML DISP.SYRIN. IV ONE
--- NOTE | 2021-10-09 08:50 | RAD ---
MR#: [id number] Date of Study: 10/09/2021 Ordering Physician: HSIKHA WILLINGHAM, Referring Physician: SHIKHA WILLINGHAM, Tech: Marlen Marcos RVT,STEPHANI APPROVED REPORT Patient Location: OUT-PATIENT Laterality:Bilateral Indications Bruit Risk Factors Hypertension: Doppler Spectral Velocity Analysis Right Left pCCA 106/17 cm/spCCA 96/20 cm/s mCCA 79/18 cm/smCCA 83/16 cm/s dCCA 68/20 cm/sdCCA 79/23 cm/s ECA 101/13 cm/sECA 103/17 cm/s pICA 46/11 cm/spICA 67/21 cm/s Debbie 69/23 cm/smICA 77/25 cm/s dICA 65/20 cm/sdICA 69/27 cm/s Vert. 83/16 cm/sVert. 26/12 cm/s ICA/CCA 0.65ICA/CCA 0.80 Critical Notification Critical Value: No <Conclusion> FINDINGS Grayscale images of extracranial carotid vessels bilaterally showed mild intimal hyperplasia. Spectr al waveform and color duplex analysis showed velocities within normal limits bilaterally suggestive o f 0 to less than 50% stenosis. The ICA to CCA ratio is within normal limits bilaterally. The verteb ral arteries showed antegrade flow with normal velocities bilaterally. No significant stenosis noted . CONCLUSIONS Carotid arterial duplex scan did not show any significant carotid artery stenosis. Signed by : Shikha Willingham, Electronically Approved : 10/09/2021 08:50:18
== END ==
LOC: US 07:59
PROVIDERS: ATTEND Internal Medicine Cardiovascular Disease
DX: I77.3 Arterial fibromuscular dysplasia (principal); R09.89 Other specified symptoms and signs involving the circulatory and respiratory systems; I10 Essential (primary) hypertension
CPT/HCPCS: 93880

== ENCOUNTER 2021-11-09 15:29 | Emergency (ER) | payer BC ==
[~2021-11-09] VITALS: Ht 182.9 cm; Wt 77.2 kg
[2021-11-09] MEDS ORDERED: DIPHTH,PERTUSS(ACELL),TET TOX 0.5 ML DISP.SYRIN. VAX IM ONE (16:00)
[2021-11-09] MEDS ORDERED: CEPH500T PO (16:06)
--- NOTE | 2021-11-09 16:06 | PHYS DOC ---
Past History Past Medical History: A-Fib, GERD Additional Past Medical Histor: ATRIAL FIBRILLATRION, WAS CARDIOVERTED Past Surgical History: No Surgical History Additional Past Surgical Histo: EGD, knee scope Alcohol Use: None General Adult EDM: Chief Complaint: CELLULITIS HPI: HPI: 60-year-old male presents with right hand swelling and concern for cellulitis. The patient punched a piece of wood several days ago and had a big splinter between the third and fourth digit. He pulled the piece of wood out but has developed red and swollen skin over the hand. He comes in today for an antibiotic. His tetanus is not up-to-date. He has no other complaints this time. Review of Systems: Review of Systems: Constitutional: Denies fever or chills Eyes: Denies change in visual acuity HENT: Denies nasal congestion or sore throat Respiratory: Denies cough or shortness of breath Cardiovascular: Denies chest pain or edema GI: Denies abdominal pain, nausea, vomiting, bloody stools or diarrhea : Denies dysuria Musculoskeletal: Denies back pain or joint pain Integument: Cellulitis right hand Neurologic: Denies headache, focal weakness or sensory changes Endocrine: Denies polyuria or polydipsia Lymphatic: Denies swollen glands Psychiatric: Denies depression or anxiety Allergies: Allergies: Allergies Coded Allergies Type Severity Reaction Last Updated Verified No Known Drug Allergies 11/09/21 No Physical Exam: PE: Constitutional: Well developed, well nourished, no acute distress, non-toxic appearance. [] HENT: Normocephalic, atraumatic, bilateral external ears normal, oropharynx moist, no oral exudates, nose normal. [] Eyes: PERRLA, EOMI, conjunctiva normal, no discharge. [] Neck: Normal range of motion, no tenderness, supple, no stridor. [] Cardiovascular:Heart rate regular rhythm, no murmur [] Lungs & Thorax: Bilateral breath sounds clear to auscultation [] Abdomen: Bowel sounds normal, soft, no tenderness, no masses, no pulsatile masses. [] Skin: Patient has hot erythematous skin of the entire right hand dorsal surface. No palpable abscess. [] Back: No tenderness, no CVA tenderness. [] Extremities: No tenderness, no cyanosis, no clubbing, ROM intact, no edema. [] Neurologic: Alert and oriented X 3, normal motor function, normal sensory function, no focal deficits noted. [] Psychologic: Affect normal, judgement normal, mood normal. [] Current Patient Data: Vital Signs: Vital Signs Date Time Temp Pulse Resp B/P (MAP) Pulse Ox O2 Delivery O2 Flow Rate FiO2 11/09/21 15:55 98.2 60 18 157/89 (111) 98 Room Air EKG: EKG: [] Radiology/Procedures: Radiology/Procedures: [] Heart Score: C/O Chest Pain: N/A Risk Factors: Risk Factors: DM, Current or recent (<one month) smoker, HTN, HLP, family history of CAD, obesity. Risk Scores: Score 0 - 3: 2.5% MACE over next 6 weeks - Discharge Home Score 4 - 6: 20.3% MACE over next 6 weeks - Admit for Clinical Observation Score 7 - 10: 72.7% MACE over next 6 weeks - Early Invasive Strategies Course & Med Decision Making: Course & Med Decision Making Pertinent Labs and Imaging studies reviewed. (See chart for details) The patient has cellulitis of the right hand. The wound appears old and is healing. I will treat him with Keflex and give the first dose in the emergency room. We will also update his tetanus shot. He is stable for discharge at this time. [] Dragon Disclaimer: Dragon Disclaimer: This electronic medical record was generated, in whole or in part, using a voice recognition dictation system. Departure Departure: Impression: Primary Impression: Cellulitis of right hand Disposition: HOME / SELF CARE / HOMELESS Condition: STABLE Referrals: NIECY DELGADO MD (PCP) Patient Instructions: Cellulitis, Cdwy-it-[facility]s Cephalexin (CEPHALEXIN) 500 Mg Tablet 1 TAB PO TID for cellulitis for 7 Days, #21 TAB Patient prefers tablets if available. Tablets or capsules are authorized Prov: JOHAN PALMER DO 11/09/21 JOHAN PALMER DO Nov 09, 2021 16:06
[2021-11-09] MEDS ORDERED: CEPHALEXIN 250 MG CAPSULE PO ONE (16:15)
[2021-11-09 16:25] VITALS: BP 133/87
== END 2021-11-09 16:30 | disposition home or self-care (01) ==
LOC: ER 15:29
DX: L03.113 Cellulitis of right upper limb (principal); I48.91 Unspecified atrial fibrillation; K21.9 Gastro-esophageal reflux disease without esophagitis
CPT/HCPCS: 90471; 90715; 99283

== ENCOUNTER 2022-01-15 11:15 | Emergency (ER) | payer BC ==
[~2022-01-15] VITALS: Ht 182.9 cm; Wt 77.2 kg
[~2022-01-15 11:15] MED LIST changes: +APIX5TAB3 PO; +CEPH500T PO; +LANS15TA6 PO; +METO-247 PO; +MULT-658 PO
[2022-01-15 11:35] VITALS: BP 124/78
--- NOTE | 2022-01-15 11:52 | PHYS DOC ---
Past History Past Medical History: A-Fib, GERD Additional Past Medical Histor: ATRIAL FIBRILLATRION, WAS CARDIOVERTED (MARK KNOWLES APRN) Past Surgical History: No Surgical History Additional Past Surgical Histo: EGD, knee scope, cardioversion, (MARK KNOWLES APRN) Alcohol Use: None (MARK KNOWLES APRN) General Adult EDM: Chief Complaint: NAUSEA/VOMITING/DIARRHEA HPI: HPI: Patient is a 61-year-old male who presents to the emergency department for nausea. Patient had a loop recorder placed by Dr. Willingham at this facility on January 13. He reports that his follow-up appointment is in March. Patient reports that he ate something bad he believes last night and had vomiting after. Patient reports that he has to be careful eating any certain vegetables and fruits and last night he did eat watermelon but believes it possibly the pork "disagreed with him". He reports that the last time he vomited was 3:00 this morning. He denies any diarrhea currently, fevers, chest pain, shortness of breath. (MARK KNOWLES APRN) Review of Systems: Review of Systems: Constitutional: See HPI Respiratory: See HPI Cardiovascular: See HPI GI: See HPI (MARK KNOWLES APRN) Allergies: Allergies: Allergies Coded Allergies Type Severity Reaction Last Updated Verified No Known Drug Allergies 01/06/22 No (MARK KNOWLES APRN) Physical Exam: PE: Constitutional: Well developed, well nourished, no acute distress, non-toxic appearance. [] HENT: Normocephalic, atraumatic, bilateral external ears normal, oropharynx mois t, no oral exudates, nose normal. [] Eyes: PERRL, EOMI, conjunctiva normal, no discharge. [] Neck: Normal range of motion, no tenderness, supple, no stridor. [] Cardiovascular:Heart rate regular rhythm, no murmur [] Lungs & Thorax: Bilateral breath sounds clear to auscultation [] Abdomen: Bowel sounds normal, soft, no tenderness, no masses, no abdominal guarding or rigidity, no pulsatile masses. [] Skin: Warm, dry, no erythema, no rash. [] Dressing in place to midline chest that is intact with a small amount of dried blood. There is no visible active bleeding. There is no signs of infection such as redness, warmth, swelling or d rainage. Back: No tenderness, motion Extremities: No tenderness, no cyanosis, no clubbing, ROM intact, no edema. [] Neurologic: Alert and oriented X 3, normal motor function, normal sensory fu nction, no focal deficits noted. [] Psychologic: Affect normal, judgement normal, mood normal. [] (MARK KNOWLES APRN) Current Patient Data: Vital Signs: Vital Signs Date Time Temp Pulse Resp B/P (MAP) Pulse Ox O2 Delivery O2 Flow Rate FiO2 01/15/22 11:35 98.0 60 16 124/78 (93) 97 Room Air (MARK KNOWLES APRN) EKG: EKG: [] (MARK KNOWLES APRN) Radiology/Procedures: Radiology/Procedures: [] (MARK KNOWLES APRN) Heart Score: C/O Chest Pain: No Risk Factors: Risk Factors: DM, Current or recent (<one month) smoker, HTN, HLP, family history of CAD, obesity. Risk Scores: Score 0 - 3: 2.5% MACE over next 6 weeks - Discharge Home Score 4 - 6: 20.3% MACE over next 6 weeks - Admit for Clinical Observation Score 7 - 10: 72.7% MACE over next 6 weeks - Early Invasive Strategies (MARK KNOWLES APRN) Course & Med Decision Making: Course & Med Decision Making Pertinent Labs and Imaging studies reviewed. (See chart for details) [] Patient presents to the emergency department for nausea that has resolved. I offered patient blood work to check electrolyte levels and treatment with IV fluids and nausea medication in which she refused. I also offered patient oral nausea medication in which she refused stating that the nausea has resolved she does not think he needs any medication. I asked patient what he would like to accomplish from today's ER visit and patient stated that he just wanted someone to look at his dressing to make sure everything was okay. Told him that dressing is dry does not appear there is any active bleeding and there is no signs of infection such as redness, warmth, swelling or drainage. Patient's vital signs are stable and he is afebrile. I advised him to follow-up with his primary care provider tomorrow and call Dr. Willingham's office if he has any concerns regarding his surgical procedure. Patient reports that he is to change the dressing after a week. I informed patient to perform the wound care that was given to him and monitor for any signs of infection. I discussed with patient all findings and diagnostic testing as well as the need to follow-up with PCP for further evaluation and treatment or return to the ER if any new or worsening symptoms. Strict return precautions were also discussed at length. Patient voiced understanding and agreement with the plan. Patient is hemodynamically stable at the time of disposition. (MARK KNOWLES APRN) Dragon Disclaimer: Dragon Disclaimer: This electronic medical record was generated, in whole or in part, using a voice recognition dictation system. (MARK KNOWLES APRN) Attending Co-Sign The patient was seen and interviewed as well as examined at the bedside. The c chambers was reviewed. The case was discussed. Agree with the plan of care. (JOHAN PALMER DO) Departure Departure: Impression: Primary Impression: Visit for wound check Disposition: HOME / SELF CARE / HOMELESS Condition: GOOD Referrals: NIECY DELGADO MD (PCP) Patient Instructions: Wound Check Additional Instructions: You were seen in the emergency department today for a wound check. As we discussed, your dressing appears to be dry with no active bleeding. Please follow-up with your primary care provider tomorrow regarding your ER visit. If you have any more concerns regarding your surgical procedure, please contact Dr. Willingham. Monitor for any signs of infection which include redness, warmth, swelling or drainage. If you develop any of the signs of infection or high fevers refractory to treatment, intractable nausea or vomiting, chest pain, shortness of breath or any new or worsening concerns please return to the emergency department immediately. MARK KNOWLES APRN January 15, 2022 11:52 JOHAN PALMER DO January 16, 2022 18:09
== END 2022-01-15 12:07 | disposition home or self-care (01) ==
LOC: ER 11:15
DX: Z48.01 Encounter for change or removal of surgical wound dressing (principal); R11.2 Nausea with vomiting, unspecified; I48.91 Unspecified atrial fibrillation; K21.9 Gastro-esophageal reflux disease without esophagitis
CPT/HCPCS: 99281